=== PATIENT | female | born 1990 | race Caucasian/White ===

== ENCOUNTER 2017-02-15 20:17 | Emergency (ER) | payer BC ==
[2017-02-15 20:26] VITALS: BP 115/74
--- NOTE | 2017-02-15 20:37 | ERNOTE ---
Upper Extremity HPI - Narrative Date of Service: 02/15/17 - General Extremities Pain Location: hand: right, thumb: right Time Seen by Provider: 02/15/17 20:30 Source: patient Exam Limitations: no limitations - Immun/Allergies/Home Medications Immunizations: IMMUNIZATION HX Immunizations Up to Date Yes History of Influenza Vaccine Yes Hx Pneumococcal Vaccination No Allergies/Adverse Reactions: Allergies Allergy/AdvReac Type Severity Reaction Status Date / Time No Known Allergies Allergy Verified 03/20/16 23:25 Home Medications: HOME MEDICATIONS Escitalopram Oxalate [Lexapro] 20 mg PO DAILY 01/31/15 [Last Taken Unknown] Fexofenadine HCl [Evelyn Allergy] 180 mg PO DAILY 03/20/16 [Last Taken Unknown] - History of Present Illness Narrative: 26yo, F, presents to ER with R. thumb injury. She reports she was kicked in the R. 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 She unsure of the exact mechanism of injury, but believes it was a direct blow to the top of the thumb, jamming her thumb inward. She reports pain to base of thumb since the injury. Date (Duration): 02/15/17 Time (Timing): 17:45 Method of Injury: Reports: direct blow Modifying Factors - (Improves): Reports: cold therapy Modifying Factors - (Worsens): Reports: movement Review of Systems - Review of Systems Constitutional: Present: no symptoms reported Musculoskeletal: Present: joint pain - base of R. thumb, joint swelling - R. thumb Skin: Present: other - mild bruising. Absent: rash Neurological: Present: tingling - initially, but now resolved - Patient's Past Medical History Patient History - Medical: Anxiety, Depression Patient History - Cardiac/Respiratory: Other Patient History - Cancer: No Hx of Cancer Patient History - Surgical Procedures: Orthopedic Patient History - Other: None LMP (females 10-50): now - Social History Living Situations: home Abuse History: No History of abuse Psych History: Hx of Anxiety, Hx of Depression Smoking Status: Never smoker Have you smoked in the past 12 months: No Do you dip or chew tobacco: No Alcohol Use: none Drug Use: none - Immunizations Immunizations Up to Date: Yes Hx Pneumococcal Vaccination: No History of Influenza Vaccine: Yes Physical Exam - Physical Exam General Appearance: Present: wd/wn, alert, no apparent distress Respiratory: Present: no respiratory distress, normal breath sounds. Absent: rales, rhonchi, wheezing Cardiovascular/Chest: Present: regular rate, rhythm, no murmur Extremity Exam: Present: non-tender - to R. wrist, decreased range of motion - R. thumb, bony tenderness - MCP joint R. thumb , joint swelling - base of R. thumb. Absent: joint redness Neurological Exam: Present: alert, oriented Skin Exam: Present: normal color, warm/dry ED Progress - Date and Time Seen: Date and Time: 02/15/17 20:45 Rates pain 10/31, offered Toradol for pain. Pt declines at this time. - Vital Signs Patient's Vital Signs:: I have reviewed the patient's vital signs. Vital Signs: Vital Signs 02/15/17 20:21 Temperature 36.9 C Pulse Rate 83 Respiratory 15 Rate Blood Pressure 115/74 O2 Sat by Pulse 100 Oximetry - X-Ray X-Ray #1 X-Ray: hand Interpretation: Reviewed by me X-ray Comments: [facility] PATIENT RADIOLOGY STUDY REPORT Patient Patient Name:NAYANA DA SILVA Date: 1990 Sex: F Order Number: [id number] Unique Exam ID: [id number] Exam Requested: [id number] - Hand Minimum 3 Views RT * Date Scheduled: 02-15-2017 09:17 PM Study Priority: Requesting Service: Requesting Physician: Janis Matute Reason for Exam: pain to base of R. thumb, post injury Radiological Report : [facility] [address] - [place] [address] NAME: NAYANA DA SILVA : 1990 MR #: [id number] CC: LOC: ER ADM DATE: X-RAY REPORT [id number] RAD/Hand Minimum 3 Views RT * Exam Date: 02/15/2017 21:17 Ordering Physician: Janis Matute History: pain to base of R. thumb, post injury Additional history provided by the technologist: Kicked in hand at [employer]. Swelling. History of fourth digit fracture. Technique: Right hand series (3 views) Comparison:None. Findings: The lateral view is limited by overlapping digits. No acute fracture or dislocation. Alignment is anatomic. Mineralization is normal. No degenerative change. No destructive osseous lesions. Joint spaces are maintained. Soft tissue swelling noted. Impression: No acute osseous findings. Electronically signed by Nish Craig D.O.. Nish Craig DO Dict: [id number] Typed: 02/15/1702/15/[id number] , Approved by: Nish Craig Approval Date: 02-15-2017 Approval Time: 09:22 PM THIS REPORT WAS RECEIVED FROM THE [employer] [facility] - Progress/Reassessment Chief Complaint: Upper Extremity Injury/Problem Departure Clinical Impression: Strain of thumb, right - Departure Disposition: Home self-care Condition: Good Additional Instructions: Call and schedule follow up with Orthopedics or your primary care provider for re-evaluation Wear splint for 1 week Rest, ice, and elevate hand Apply ice 15 min on/15 min off May use Ibuprofen as needed for pain Referrals: Gisella Granado FNP [Primary Care Provider] - Kyle Maloney MD [Staff Physician] -
== END 2017-02-15 22:01 | disposition home or self-care (01) ==
LOC: ER 20:17
PROC: 2W3GX1Z Immobilization of Right Thumb using Splint (ICD-10-PCS; principal; 2017-02-15)
DX: S63.601A Unspecified sprain of right thumb, initial encounter (principal); X58.XXXA Exposure to other specified factors, initial encounter; Y93.43 Activity, gymnastics; Y92.39 Other specified sports and athletic area as the place of occurrence of the external cause; Y99.2 Volunteer activity; F41.8 Other specified anxiety disorders